=== PATIENT | male | born 1990 | race Caucasian/White ===

== ENCOUNTER 2023-10-13 15:11 | Emergency (ER) | payer OTHER, MEDICAID, SELFPAY ==
[2023-10-13 15:18] VITALS: BP 99/64; BMI 30.1
--- NOTE | 2023-10-13 16:08 | ED.GENMED ---
History of Present Illness
General
Chief Complaint: Seizure
Source: patient
Exam Limitations: none
Time Seen by Provider: 10/13/23 15:42
Nursing documentation reviewed up to this point in time: agreed with
Travel History
Have you had any contact with someone who has COVID-19?: No
Do you have any symptoms of coronavirus? Fever > 100 degrees, chills, cough, shortness of breath, sore throat, loss of taste or smell, muscle aches, or headache?: No
History of Present Illness
History of Present Illness:
Patient with history of ADHD, bipolar disorder, autism, and seizure disorder, presents to ED secondary to more frequent episodes of angry outbursts along with ongoing 'drop seizures'. 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
callosum is to removed on October 22 [facility], in hopes of reducing number of aforementioned symptoms. Otherwise, per mom, patient has been eating and drinking plenty water at home. Denies recent illness. Denies
fever. Denies coughing. Denies nausea, vomiting, or diarrhea. Patient has been taking his medications, as prescribed.
Past History
Past History
ED Past Medical History: Seizures and Other (MR, autism, seizure disorder, bipolar disorder, scoliosis, ADHD, hyponatremia)
ED Past Surgical History: Other (frontal lobotomy, corpus collousum resection, vagas nerve stimulator implantation)
Social History
Tobacco: Non-smoker
Alcohol: None
Drug: None
Personal: Single
Living: with family
Employment: Employed
Family History
Family History: Unable to obtain
Review of Systems
Review of Systems
Allergies reviewed?: Yes
All Other Systems: ROS reviewed and negative except as documented in HPI and ROS
Constitutional: Reports no symptoms
EENT: Reports no symptoms
Respiratory: Reports no symptoms
Cardiac: Reports no symptoms
ABD/GI: Reports no symptoms
: Reports no symptoms
Musculoskeletal: Reports no symptoms
Skin: Reports no symptoms
Neurological: Reports other (seizures)
Phy Exam
Physical Exam
Physical Exam:
Physical Exam
General: no apparent distress, not acutely ill
Neck: supple. no meningeal signs.
Heart: s1/s2 regular rate and rhythm, no murmur. equal radial pulses.
Lungs: no acute respiratory distress. clear bilaterally
Abdomen: normal bowel sounds. not tender.
Neuro: alert and oriented. no focal neurological deficits
Skin: no rash
Extremities: no edema. no calf tenderness.
Course
Orders/Labs/Results
Orders:
Orders
10/13/23 16:08
Urinalysis Reflex To Culture Urgent
Vital Signs
Initial and Last Documented VS:
Initial Vital Signs
Temp Pulse Resp BP Pulse Ox
99.4 F 86 16 99/64 96
10/13/23 15:18 10/13/23 15:18 10/13/23 15:18 10/13/23 15:18 10/13/23 15:18
Last Documented Vital Signs
Temp Pulse Resp BP Pulse Ox
99.4 F 86 16 99/64 96
10/13/23 15:18 10/13/23 15:18 10/13/23 15:18 10/13/23 15:18 10/13/23 15:18
MDM/Problems Addressed
MDM/Problems Addressed:
Patient remains calm, cooperative, without any physical outbursts during observation. As such, despite not obtaining urinalysis, mother feels comfortable taking him home at this time. Patient advised to follow-up with his neurologist at [place]
[facility] for continual evaluation and treatment.
*Critical Care Note
Total Time (30-74mins, 75-104mins- exclusive of procedures): Not Applicable
ED Attending Note
-
Portions of this chart may have been created with voice recognition software.� Occasional wrong word or��sound alike� substitutions may have occurred due to the inherent limitations of voice recognition software.
Discharge Plan
Departure
Patient Disposition: Home (Routine Discharge)
Date of Disposition: 10/13/23
Time of Disposition: 17:06
Patient with high blood pressure during this ER visit?: Yes
Condition: Good
Discharge Problem:
Seizure
Instructions: Seizures, Adult (DC)
Prescriptions:
No Action
cyanocobalamin (vitamin B-12) 1,000 MCG tablet
500 mcg PO DAILY
fluticasone propionate 1 SPRAY spray,suspension
1 spray inhalation DAILY
aripiprazole [Abilify] 30 MG tablet
30 mg PO HS
cholecalciferol (vitamin D3) 1,000 UNITS tablet
1,000 units PO DAILY
Align 4 MG capsule
1 capsules PO DAILY
divalproex 500 MG tablet extended release 24 hr
500 mg PO BID
trazodone 50 mg Tablet
50 mg PO HS Qty: 30 0RF
sodium chloride 1,000 mg Tablet,Soluble
1,000 mg PO BID Qty: 60 0RF
bisacodyl [OneLAX Bisacodyl] 10 mg Suppository
10 mg [place] DAILYPRN PRN (Reason: constipation) Qty: 30 0RF
Aptiom 600 MG tablet
600 mg PO HS Qty: 30 0RF
clobazam 10 MG tablet
20 mg PO QPM@1830 Qty: 0 0RF
clobazam 10 MG tablet
10 mg PO DAILY Qty: 0 0RF
Xcopri 200 mg tablet
200 mg PO HS Qty: 30 0RF
Activity Restrictions/Additional Instructions:
As discussed, please continue to take your medications as prescribed, along with follow up with your neurologist @ [facility]
Interventions
Interventions:
*Risk Screen - Suicide Last Done: 10/13/23 16:03
*General Assessment Last Done: 10/13/23 15:31
*Neglect/Abuse Screening Last Done: 10/13/23 15:31
ED- Fall Risk Assessment Last Done: 10/13/23 15:31
*ED COVID-19 Vaccine History Last Done: 10/13/23 15:18
*Nursing Disposition Last Done: 10/13/23 17:15
ED- Cardiac Assessment Last Done: 10/13/23 15:31
ED- Neurological Assessment Last Done: 10/13/23 15:31
ED- Pulmonary Assessment Last Done: 10/13/23 15:31
Discharge Date and Time
Discharge Date/Time: 10/13/23 17:15
== END 2023-10-13 17:15 | disposition home or self-care (01) ==
LOC: EMR 15:11
PROVIDERS: EMERGENCY PHYSICIAN Emergency Medicine; FAMILY PHYSICIAN Family Medicine
DX: G40.909 Epilepsy, unspecified, not intractable, without status epilepticus (principal); F84.0 Autistic disorder; F31.9 Bipolar disorder, unspecified; F90.9 Attention-deficit hyperactivity disorder, unspecified type
CPT/HCPCS: 99282

== ENCOUNTER → 2023-10-29 11:58 | Outpatient (REF) | payer OTHER, MEDICAID, SELFPAY | LOC: RAD 11:58 | PROVIDERS: ATTENDING PHYSICIAN Family Medicine | DX: G40.909 Epilepsy, unspecified, not intractable, without status epilepticus (principal); M79.601 Pain in right arm; W19.XXXA Unspecified fall, initial encounter | CPT/HCPCS: 73090; 73130 ==

== ENCOUNTER 2024-05-27 18:33 | Emergency (ER) | payer OTHER, MEDICAID, SELFPAY ==
[2024-05-27 18:36] VITALS: BP 141/110
[2024-05-27 18:53] LABS: % Basophils 0.5 % (0-2); % Eosinophils 1.9 % (0-6); % Immature Granulocytes 0.5 % (0-0.5); % Lymphocytes 35.2 % (20.5-51.1); % Monocytes 10.2 % (1.7-9.3); % Neutrophils 51.7 % (42.2-75.2); Absolute Eosinophils 0.1 10^3/uL (0-0.7); Absolute Lymphocytes 2.3 10^3/uL (1.2-3.4); Absolute Monocytes 0.7 10^3/uL (0.1-0.6); Absolute Neutrophils 3.3 10^3/uL (1.4-6.5); Hematocrit 41.2 % (39.0-52.0); Hemoglobin 15.4 g/dL (13.0-18.0); Mean Corp Hgb Conc. 37.4 g/dL (33.0-37.0); Mean Corpuscular Hgb 33.5 pg (27.0-31.0); Mean Corpuscular Volume 89.6 fL (80.0-94.0); Mean Platelet Volume 9.9 fL (7.4-10.4); Nucleated Red Blood Cells % 0 % (-); Platelet Count 223 10^3/uL (130-400); Red Cell Dist. Width 12.4 % (11.5-14.5); White Blood Cell Count 6.4 10^3/uL (4.8-10.8)
[2024-05-27 19:17] VITALS: BP 117/78
[2024-05-27 19:28] LABS: ALT (SGPT) 42 U/L (0-50); AST (SGOT) 32 U/L (17-59); Albumin 4.5 g/dl (3.5-5.0); Alkaline Phosphatase 92 U/L (38-126); Blood Urea Nitrogen 12 mg/dl (9-20); Calcium 9.9 mg/dl (8.4-10.2); Carbon Dioxide 28 mmol/L (22-30); Chloride 97 mmol/L (98-107); Glucose 101 mg/dl (70-99); Potassium 4.6 mmol/L (3.5-5.1); Sodium 136 mmol/L (135-145); Total Bilirubin 0.2 mg/dl (0.2-1.3); Total Protein 6.8 g/dl (6.3-8.2); eGFR > 60.00
[2024-05-27 19:35] VITALS: BMI 33.6
[2024-05-27 19:36] LABS: Lipase 116 U/L (23-300)
--- NOTE | 2024-05-27 19:36 | ED.GENMED ---
History of Present Illness
General
Chief Complaint: Abdominal Symptoms
Source: patient
Exam Limitations: none
Time Seen by Provider: 05/27/24 19:18
History of Present Illness
History of Present Illness:
33-year-old male with developmental delay presents with mother who states the patient has had a burning discomfort in his bottom over the past several days. He also has been struggling to have a bowel movement. He has chronic constipation. There
has been no vomiting or fever. He denies abdominal pain. No other complaints at this time
Past History
Past History
ED Past Medical History: Seizures and Other (MR, autism, seizure disorder, bipolar disorder, scoliosis, ADHD, hyponatremia)
ED Past Surgical History: Other (frontal lobotomy, corpus collousum resection, vagas nerve stimulator implantation)
Social History
Tobacco: Non-smoker
Alcohol: None
Drug: None
Personal: Single
Living: with family
Employment: Employed
Family History
Family History: Unable to obtain
Phy Exam
Physical Exam
Physical Exam:
General: Well-appearing male no acute respiratory distress
HEENT: Normocephalic atraumatic
Heart: Regular rate and rhythm no murmurs
Lungs: Clear no wheeze
Abdomen is soft nontender nondistended no guarding or rebound
Rectal exam: There is diffuse erythema about the gluteal cleft that spreads from the perianal region and posteriorly and superiorly. The skin is irritated. There is no hemorrhoids or abscess or pilonidal cyst
Extremities: No cyanosis
Course
Orders/Labs/Results
Orders:
Orders
05/27/24 18:39
CR Abdomen - 1 View Urgent
Comment:
Reason For Exam: constipation
05/27/24 18:47
Complete Blood Count/With Diff Urgent
Comprehensive Metabolic Panel Urgent
Lipase Urgent
Comment: ADD ON
05/27/24 19:18
Add On- LAB Urgent
Comments:: add on
Tests Added?: lipase
Abnormal Lab Results
05/27/24
18:47
RBC 4.60 L 10^6/uL
(4.70-6.10)
MCH 33.5 H pg
(27.0-31.0)
MCHC 37.4 H g/dL
(33.0-37.0)
Absolute Monos (auto) 0.7 H 10^3/uL
(0.1-0.6)
Monocytes % 10.2 H %
(1.7-9.3)
Chloride 97 L mmol/L
(98-107)
Creatinine 0.5 L mg/dL
(0.7-1.3)
Glucose 101 H mg/dl
(70-99)
05/27/24 18:47
05/27/24 18:47
Vital Signs
Initial and Last Documented VS:
Initial Vital Signs
Temp Pulse Resp BP Pulse Ox
98.3 F 84 18 141/110 96
05/27/24 18:36 05/27/24 18:36 05/27/24 18:36 05/27/24 18:36 05/27/24 18:36
Last Documented Vital Signs
Temp Pulse Resp BP Pulse Ox
98.3 F 69 14 117/78 93
05/27/24 18:36 05/27/24 19:18 05/27/24 19:18 05/27/24 19:17 05/27/24 19:18
MDM/Problems Addressed
Differential Diagnosis Includes:
Patient main complaint is burning discomfort in the perianal region. Evidence of exam of skin irritation question fungal versus inflammatory. He may not be drying himself well after showers. Will recommend topical steroid for this and good
hygiene. Labs ordered through triage were reviewed without significant finding. X-ray of the abdomen was personally visualized and is without any acute finding
*Critical Care Note
Total Time (30-74mins, 75-104mins- exclusive of procedures): Not Applicable
ED Attending Note
-
Portions of this chart may have been created with voice recognition software.� Occasional wrong word or��sound alike� substitutions may have occurred due to the inherent limitations of voice recognition software.
Discharge Plan
Departure
Patient Disposition: Home (Routine Discharge)
Date of Disposition: 05/27/24
Time of Disposition: 20:53
Patient with high blood pressure during this ER visit?: No
Discharge Problem:
Acute buttock pain
Prescriptions:
New
hydrocortisone [Proctocort] 1 % cream
1 applic topical TID Qty: 28.35 0RF
No Action
cyanocobalamin (vitamin B-12) 1,000 MCG tablet
500 mcg PO DAILY
fluticasone propionate 1 SPRAY spray,suspension
1 spray inhalation DAILY
aripiprazole [Abilify] 30 MG tablet
30 mg PO HS
cholecalciferol (vitamin D3) 1,000 UNITS tablet
1,000 units PO DAILY
Align 4 MG capsule
1 capsules PO DAILY
divalproex 500 MG tablet extended release 24 hr
500 mg PO BID
trazodone 50 mg Tablet
50 mg PO HS Qty: 30 0RF
sodium chloride 1,000 mg Tablet,Soluble
1,000 mg PO BID Qty: 60 0RF
bisacodyl [OneLAX Bisacodyl] 10 mg Suppository
10 mg [place] DAILYPRN PRN (Reason: constipation) Qty: 30 0RF
Aptiom 600 MG tablet
600 mg PO HS Qty: 30 0RF
clobazam 10 MG tablet
20 mg PO QPM@1830 Qty: 0 0RF
clobazam 10 MG tablet
10 mg PO DAILY Qty: 0 0RF
Xcopri 200 mg tablet
200 mg PO HS Qty: 30 0RF
Referrals:
Benja Hudson MD [Family Provider] -
Activity Restrictions/Additional Instructions:
Make sure to clean and dry the area well. Use steroid 3 times a day. Return if worse otherwise follow-up with your doctor
Interventions
Interventions:
*Risk Screen - Suicide Last Done: 05/27/24 19:35
*General Assessment Last Done: 05/27/24 18:36
*Neglect/Abuse Screening Last Done: 05/27/24 19:35
*ED COVID-19 Vaccine History Last Done: 05/27/24 19:35
JL-Iodswx-Oozuzrvnwp Assessment Last Done: 05/27/24 19:35
Discharge Date and Time
Print Language: NORWEGIAN
[2024-05-27 20:00] VITALS: BP 112/70
[2024-05-27 21:00] VITALS: BP 107/74
== END 2024-05-27 21:12 | disposition home or self-care (01) ==
LOC: EMR 18:33
PROVIDERS: Student in an Organized Health Care Education/Training Program; EMERGENCY PHYSICIAN Emergency Medicine; FAMILY PHYSICIAN Family Medicine
DX: M79.10 Myalgia, unspecified site (principal); R62.50 Unspecified lack of expected normal physiological development in childhood; K59.09 Other constipation; G40.909 Epilepsy, unspecified, not intractable, without status epilepticus; F31.9 Bipolar disorder, unspecified; F84.0 Autistic disorder
CPT/HCPCS: 99283; 74018; 80053; 83690; 85025

== ENCOUNTER → 2024-09-28 12:21 | Outpatient (REF) | payer MEDICAID, MEDICARE, SELFPAY ==
[2024-09-28 12:52] LABS: % Basophils 0.2 % (0-2); % Eosinophils 0.8 % (0-6); % Immature Granulocytes 0.4 % (0-0.5); % Lymphocytes 39.1 % (20.5-51.1); % Monocytes 10.5 % (1.7-9.3); Absolute Monocytes 0.5 10^3/uL (0.1-0.6); Absolute Neutrophils 2.5 10^3/uL (1.4-6.5); Hematocrit 39.2 % (39.0-52.0); Hemoglobin 14.7 g/dL (13.0-18.0); Mean Corp Hgb Conc. 37.5 g/dL (33.0-37.0); Mean Corpuscular Hgb 34.3 pg (27.0-31.0); Mean Corpuscular Volume 91.6 fL (80.0-94.0); Nucleated Red Blood Cells % 0 % (-); Platelet Count 181 10^3/uL (130-400); Red Blood Cell Count 4.28 10^6/uL (4.70-6.10); Red Cell Dist. Width 12.6 % (11.5-14.5); White Blood Cell Count 5.1 10^3/uL (4.8-10.8)
[2024-09-28 13:20] LABS: ALT (SGPT) 62 U/L (0-50); AST (SGOT) 36 U/L (17-59); Albumin 4.1 g/dl (3.5-5.0); Alkaline Phosphatase 72 U/L (38-126); Amylase 68 U/L (30-110); Blood Urea Nitrogen 5 mg/dl (9-20); Calcium 8.7 mg/dl (8.4-10.2); Carbon Dioxide 31 mmol/L (22-30); Chloride 91 mmol/L (98-107); Glucose 97 mg/dl (70-99); Lipase 122 U/L (23-300); Potassium 4.2 mmol/L (3.5-5.1); Sodium 129 mmol/L (135-145); Total Bilirubin 0.4 mg/dl (0.2-1.3); Total Protein 6.4 g/dl (6.3-8.2); eGFR > 60.00
== END ==
LOC: REG 12:21
PROVIDERS: ATTENDING PHYSICIAN Physician Assistant
DX: R10.84 Generalized abdominal pain (principal); K59.09 Other constipation
CPT/HCPCS: 36415; 74019; 80053; 82150; 83690; 85025

== ENCOUNTER → 2024-10-10 07:15 | Outpatient (REF) | payer MEDICARE, MEDICAID, SELFPAY | LOC: HWRAD 07:15 | PROVIDERS: ATTENDING PHYSICIAN Physician Assistant | DX: R10.84 Generalized abdominal pain (principal) | CPT/HCPCS: 76700 ==

== ENCOUNTER 2024-10-19 22:18 | Inpatient (IN) | payer MEDICARE, MEDICAID, SELFPAY ==
[2024-10-19 17:13] VITALS: BP 99/72
--- NOTE | 2024-10-19 18:23 | ED.GENMED ---
History of Present Illness
General
Chief Complaint: Abdominal Pain
Source: patient
Exam Limitations: none
Time Seen by Provider: 10/19/24 18:14
Nursing documentation reviewed up to this point in time: agreed with
History of Present Illness
History of Present Illness:
Patient to ED with complaint of RUQ abd. pain. MOther states he has had pain on and off for the past month. Pain gradually got worse and he was sent fo outpatient [facility] 1.5 weeks ago by PCP. Mother states he has evidence of gallstones. Today he
reported pain was worse so mother brought him here for eval. Denies fever/chills. No nausea. Had vomiting 1.5 weeks ago but none since. +diarrhea althought mother reports continuing his miralax and colace. On arrival to ED he is awake and alert,
in no distress.
Past History
Past History
ED Past Medical History: Seizures and Other (MR, autism, seizure disorder, bipolar disorder, scoliosis, ADHD, hyponatremia)
ED Past Surgical History: Other (frontal lobotomy, corpus collousum resection, vagas nerve stimulator implantation)
Social History
Tobacco: Non-smoker
Alcohol: None
Drug: None
Personal: Single
Living: with family
Employment: Employed
Family History
Family History: Unable to obtain
Review of Systems
Review of Systems
Allergies reviewed?: Yes
All Other Systems: ROS reviewed and negative except as documented in HPI and ROS
Constitutional: Reports no symptoms
EENT: Reports no symptoms
Respiratory: Reports no symptoms
Cardiac: Reports no symptoms
ABD/GI: Reports abdominal pain (RUQ)
: Reports no symptoms
Musculoskeletal: Reports no symptoms
Skin: Reports no symptoms
Neurological: Reports no symptoms
Psychiatric: Reports no symptoms
Phy Exam
General Physical Exam
General Presentation: well appearing and no apparent distress
General age: appears stated age
General Skin: warm and dry
General Habitus: normal
General Mental: alert
Cardiovascular Exam
Cardiovascular Exam: regular rate/rhythm and no edema
Pulmonary Exam
Pulmonary Exam: lungs clear and no respiratory distress
Gastrointestinal Exam
Gastrointestinal Exam: normal bowel sounds, soft, no organomegaly and non distended
Palpation: left upper quadrant: No tenderness, left lower quadrant: No tenderness, right upper quadrant: Mild tenderness and right lower quadrant: No tenderness
Neurological Exam
Neurological Exam: alert, oriented x3, CN II-XII intact, no motor deficits, no sensory deficits and normal gait
Musculoskeletal Exam
Musculoskeletal Exam: full ROM and neuro vasc intact
Skin Exam
Skin Exam: normal color, warm/dry and no rash
Psychiatric Exam
Psychiatric Exam: normal mood/affect
Course
Orders/Labs/Results
Orders:
Orders
10/19/24 Breakfast
Regular
Fluid Restriction: 1200 mL/day (40 oz)
10/19/24 18:22
US Abdomen Complete/Upper Urgent
Reason For Exam: WORSENING RUQ pain, F/U GB FROM 10/10/24
10/19/24 18:30
Complete Blood Count/With Diff Urgent
Comprehensive Metabolic Panel Urgent
Cortisol, Random Urgent
Comment: ADD ON
Lipase Urgent
Serum Osmolality Urgent
Comment: ADD ON
TSH Reflex To Free T4 Urgent
Comment: ADD ON
10/19/24 20:03
Phenobarbital [S] Urgent
Valproic Acid Level [Depakane] Urgent
10/19/24 20:54
Osmolality, Random Urine Urgent
Date Specimen was Collected: 10/19/24
Time Specimen was Collected: 20:52
Urine Sodium Urgent
Date Specimen was Collected: 10/19/24
Time Specimen was Collected: 20:52
10/19/24 21:11
NEPHROLOGY CONSULT Urgent
Consulting Provider: Jeffery Hearn
Was physician already notified: Yes
10/19/24 21:41
Admit/Transfer Patient As Directed
Co-Sign Provider:
Level of Care: Inpatient admission
Assign to:: Telemetry
Physician / Group: [facility]
Diagnosis: hyponatremia
Reason for Telemetry: Other
Other Reason for Telemetry: hyponatremia
Date to Stop Telemetry: 10/21/24
Time to Stop Telemetry: 11:00
Reason for Hospitalization: hyponatremia
Expected length of stay greater than two midnights?: Yes
ELOS- Estimated Length of Stay in days: 3
I certify the patient meets the requirements for IP care: Yes
PRN Pain Medication Management As Directed
May give lesser potent ordered pain med per pt: Yes
preference::
Protocol:: Medication orders for pain may be administered in a
manner that supports deferring to patient preference
when the pt is:
- Requesting an ordered lesser potent pain medication.
Least to most potent pain medications are defined
as: acetaminophen < NSAID < tramadol < opioids
(morphine, oxycodone, hydromorphone).
- Requesting a lesser dose of the same medication IF
ORDERED.
- Requesting a less intrusive route of administration
if both routes are prescribed by the provider (PO <
IV).
10/19/24 21:43
Code Status As Directed
Resuscitation Status: Full Code
10/19/24 22:00
3% Sodium Chloride 250 ml [Sodium Chloride 3%] 250 ml IV ONCE
10/19/24 23:06
Acetaminophen [Tylenol] 650 mg PO Q4HPRN PRN
Buspirone [Buspar] 20 mg PO HS
Lorazepam [Ativan] 0.5 mg PO TID
Lorazepam [Ativan] 1 mg IV Q4HPRN PRN
Magnesium Oxide 500 mg PO HS
Trazodone [Desyrel] 100 mg PO HS
ziprasidone HCl 160 mg PO HS
10/19/24 23:06
Activity As Directed
Activity Level: As Tolerated
Bladder Scan As Directed
Follow Bladder Retention/Intermittent Cath Algorithm?: Yes
PRN if no void in __ hours: 6
Frequency: Per Retention Algorithm
If Bladder Scan Result >: 400
then:: Straight cath
Precautions As Directed
Type of Precautions: Seizure
Straight Cath As Directed
Frequency: Per Retention Algorithm
Additional Instructions: straight cath as needed per acute urinary retention algorithm for 24 hrs
Additional Instructions: for bladder scan greater than 400 mL
Vital Signs As Directed
Frequency: Per unit guidelines
DX Deep Vein Thrombosis Video Routine
10/20/24 06:00
Basic Metabolic Panel IN AM
Cortisol, Random IN AM
10/20/24 08:00
Buspirone [Buspar] 10 mg PO BID
Cholecalciferol (Vitamin D3) [VITAMIN D3 (cholecalciferol)] DOSE mcg PO DAILY
Divalproex Extended Rel. 24 Hr [Depakote ER (24 Hr Release)] 1,500 mg PO BID
Loratadine [Claritin] 10 mg PO DAILY
Phenobarbital [Luminal] 129.6 mg PO BID
Sodium Chloride 1 gram PO BID
Sodium Chloride 2 gram PO DAILY
Tamsulosin [Flomax] 0.4 mg PO DAILY
Trazodone [Desyrel] 50 mg PO BID
Ziprasidone [Geodon] 20 mg PO BID
multivit with min-folic acid [Multivitamin Gummies] 400 tablet PO DAILY
10/20/24 18:00
Enoxaparin Sodium [Lovenox] 40 mg SC QPM
10/20/24 22:00
Clonazepam [Klonopin] 2 mg PO HS
10/21/24 06:00
Basic Metabolic Panel IN AM
10/21/24 11:00
DC Protocol for Telemetry ONCE
10/22/24 06:00
Basic Metabolic Panel IN AM
Abnormal Lab Results
10/19/24 10/19/24
18:30 20:54
RBC 4.06 L 10^6/uL
(4.70-6.10)
Hct 37.3 L %
(39.0-52.0)
MCH 34.2 H pg
(27.0-31.0)
MCHC 37.3 H g/dL
(33.0-37.0)
Absolute Monos (auto) 1.1 H 10^3/uL
(0.1-0.6)
Immature Gran % 0.6 H %
(0-0.5)
Monocytes % 15.3 H %
(1.7-9.3)
Sodium 119 L* mmol/L
(135-145)
Chloride 85 L mmol/L
(98-107)
Creatinine 0.5 L mg/dL
(0.7-1.3)
Serum Osmolality 252 L mOsm/kg
(275-300)
ALT 60 H U/L
(0-50)
Urine Sodium 114 H mmol/L
(30-90)
10/19/24 18:30
10/19/24 18:30
Vital Signs
Initial and Last Documented VS:
Initial Vital Signs
Temp Pulse Resp BP Pulse Ox
98.7 F 89 9 99/72 99
10/19/24 17:13 10/19/24 17:13 10/19/24 17:13 10/19/24 17:13 10/19/24 17:13
Last Documented Vital Signs
Temp Pulse Resp BP Pulse Ox
98.7 F 99 17 126/68 93
10/19/24 17:13 10/19/24 21:45 10/19/24 21:45 10/19/24 20:03 10/19/24 21:45
*Critical Care Note
Total Time (30-74mins, 75-104mins- exclusive of procedures): Not Applicable
Update Note
Update Note:
Patient to ED wt complaint of RUQ abd pain. No n/v, has had diarrhea however mother continues to give miralax and colace daily. Labs reveiwed. Na 119. Mother reports prior history of hyponatremia but not to this leve. He is on NaCL 1g po tid
and she reports compliance with his meds. Dr. Hearn notified of pateint status. Recommend NaCl 3% @ 20cc/hr. Infusion started. US report reviewed, no evidence of cholelcystitis. He remains awake and alert, in no distress. He is admitted
to hospitalist service with nephrology consulted.
ED Attending Note
-
Portions of this chart may have been created with voice recognition software.� Occasional wrong word or��sound alike� substitutions may have occurred due to the inherent limitations of voice recognition software.
Discharge Plan
Departure
Patient Disposition: Admit
Date of Disposition: 10/19/24
Time of Disposition: 20:57
Presentation/result/management discussed w/ accepting MD/DO: Hospitalist
Patient with high blood pressure during this ER visit?: No
Condition: Fair
Covid-19: Not Applicable
Discharge Problem:
Acute hyponatremia
Interventions
Interventions:
*Risk Screen - Suicide Last Done: 10/19/24 17:14
*General Assessment Last Done: 10/19/24 17:14
*Neglect/Abuse Screening Last Done: 10/19/24 17:14
*ED COVID-19 Vaccine History Last Done: 10/19/24 17:14
MO-Iluzfq-Wbtgeueqnf Assessment Last Done: 10/19/24 20:10
[2024-10-19 18:48] LABS: % Basophils 0.1 % (0-2); % Immature Granulocytes 0.6 % (0-0.5); % Lymphocytes 23.4 % (20.5-51.1); % Monocytes 15.3 % (1.7-9.3); % Neutrophils 59.6 % (42.2-75.2); Absolute Eosinophils 0.1 10^3/uL (0-0.7); Absolute Lymphocytes 1.7 10^3/uL (1.2-3.4); Absolute Monocytes 1.1 10^3/uL (0.1-0.6); Absolute Neutrophils 4.3 10^3/uL (1.4-6.5); Hematocrit 37.3 % (39.0-52.0); Hemoglobin 13.9 g/dL (13.0-18.0); Mean Corp Hgb Conc. 37.3 g/dL (33.0-37.0); Mean Corpuscular Hgb 34.2 pg (27.0-31.0); Mean Corpuscular Volume 91.9 fL (80.0-94.0); Mean Platelet Volume 9.9 fL (7.4-10.4); Nucleated Red Blood Cells % 0 % (-); Platelet Count 152 10^3/uL (130-400); Red Blood Cell Count 4.06 10^6/uL (4.70-6.10); Red Cell Dist. Width 12.3 % (11.5-14.5); White Blood Cell Count 7.2 10^3/uL (4.8-10.8)
[2024-10-19 19:02] LABS: ALT (SGPT) 60 U/L (0-50); AST (SGOT) 43 U/L (17-59); Albumin 4.1 g/dl (3.5-5.0); Alkaline Phosphatase 72 U/L (38-126); Blood Urea Nitrogen 10 mg/dl (9-20); Calcium 8.5 mg/dl (8.4-10.2); Carbon Dioxide 28 mmol/L (22-30); Chloride 85 mmol/L (98-107); Glucose 81 mg/dl (70-99); Potassium 4.2 mmol/L (3.5-5.1); Sodium 119 mmol/L (135-145); Total Bilirubin 0.6 mg/dl (0.2-1.3); Total Protein 6.3 g/dl (6.3-8.2); eGFR > 60.00
[2024-10-19 19:10] LABS: Lipase 88 U/L (23-300)
[2024-10-19 20:03] VITALS: BP 126/68
[2024-10-19 20:20] LABS: Osmolality Serum 252 mOsm/kg (275-300)
[2024-10-19 20:56] LABS: Cortisol, Random 8.1 ug/dl
[2024-10-19 21:09] LABS: Osmolality Urine 352 mOsm/kg (300-900)
--- NOTE | 2024-10-19 21:14 | HPS.HSE ---
Addendum entered and electronically signed by Mayo Vo DO 10/19/24 22:28:
Patient seen and examined independently. Agree with findings and plan as set forth by GREER Hernandez.
Patient is a 33y M with PMH significant for seizure disorder, prior brain surgery and chronic hyponatremia who presents to ED complaining of abdominal pain. History obtained primarily from mother at the bedside. Patient has been complaining of
abdominal discomfort and back discomfort off-and-on for about a month. Has been taking bowel regimen for constipation and more recently has had some loose stools. Appetite is somewhat diminished. Mother notes that he is 'always thirsty' and
drinks three water bottles of Snapple / water mixture as well as several cups of coffee in a day.
He had a single episode of emesis about one week ago. None since.
Mother notes that his Depakote was increased from 1000mg BID to 1500mg BID one month ago.
His last seizure was 1 1/2 weeks ago.
Ass:
Acute on Chronic Hyponatremia
Seizure Disorder
History of Brain Surgery
Abdominal Pain
Autism / Intellectual Disorder
BPH
Plan:
Admit to monitored bed.
3% saline overnight per Nephrology recs.
Continue usual salt supplementation.
Enforce fluid restriction.
Nephrology evaluation for additional recommendations.
Continue current med regimen for now - though many medications for mood / seizure / etc likely contributing to hyponatremia.
Risk of breakthrough seizure - seizure precautions / PRN Ativan if any seizure activity noted.
? Neuro / Psych evaluations to review any potential med adjustments to minimize risk of hyponatremia.
No clear etiology of abdominal pain. Cholelithiasis only on US. Follow for any new / worsening symptoms.
Original Note:
Family Physician
-
Family Physician: Oneyda Neal PA-C
Chief Complaint
-
abdominal pain
History of Present Illness
33 year old with PMH for Autism,seizure, hyponatremia, anxiety, presented to us with abdominal pain for more than one month. RUQ abd. pain. patient had an US on 10/10 with the impression of Cholelithiasis. Today he reported pain was worse so mother
brought him here for eval. he vomited once a week ago. complaining of back pain. Denies fever/chills. patient was constipated, he was given prune juice and miralax and now he is having diarrhea. denied dysuria or hematuria. his appetite is good.
US today with the impression of Cholelithiasis. No evidence for gallbladder wall thickening or pericholecystic edema, with a negative sonographic Santillan's sign.No evidence for biliary ductal dilation.Mild hepatomegaly. No evidence of a focal hepatic
lesion.The pancreas is unable to be adequately visualized.
patient was also noted with hyponatremia. patient is receiving 3% in ER. admitting for further management.
Medical History
Past Medical History
Past Medical History: Reports Other
Additional Past Medical History:
autism
anxiety
sciatica
seizure
MR
Past Surgical History: Reports Other
Additional Past Surgical History:
vagal nerve stimulator
corpus callosum removal
cranial stenosis repair.
Social History
Tobacco: Non-smoker
Alcohol: None
Drug: None
Personal: Single
Living: With Family
Family History
Family History: Not pertinent
Allergies / Home Medications
Allergies reflects when Allergies were last updated in [facility].
Home Medications with original date entered in [facility]
Allergy/Medication List:
Allergies
Allergy/AdvReac Type Severity Reaction Status Date / Time
Antihistamines - Ethanolamine Allergy hallucinations Verified 10/19/24 17:13
to
'antihistamines'
lactose Allergy intolerant Verified 10/19/24 17:13
Home Medications
cholecalciferol (vitamin D3) 25 mcg (1,000 unit) tablet 2,000 units PO DAILY Supplement 02/18/22
divalproex 500 mg tablet,extended release 24 hr 1,500 mg PO BID Seizures 02/18/22
buspirone 10 mg tablet 10 mg PO BID 10/19/24
buspirone 10 mg tablet 20 mg PO HS 10/19/24
clonazepam 2 mg tablet 2 mg PO HS 10/19/24
docusate sodium 100 mg capsule (Colace) 200 mg PO BID 10/19/24
levomefolate 15 mg-algal oil 90.314 mg capsule 1 cap PO DAILY 10/19/24
loratadine 10 mg tablet 10 mg PO DAILY 10/19/24
lorazepam 1 mg tablet 0.5 mg PO TID 10/19/24
magnesium oxide 500 mg PO HS 10/19/24
multivitamin with minerals-folic acid 200 mcg chewable tablet (Multivitamin Gummies) 400 tab PO DAILY 10/19/24
phenobarbital 32.4 mg tablet 129.6 mg PO BID 10/19/24
sodium chloride 1,000 mg soluble tablet 1,000 mg PO BID 10/19/24
sodium chloride 1,000 mg soluble tablet 2,000 mg PO DAILY 10/19/24
tamsulosin 0.4 mg capsule 0.4 mg PO DAILY 10/19/24
trazodone 50 mg tablet 50 mg PO BID 10/19/24
trazodone 50 mg tablet 100 mg PO HS 10/19/24
ziprasidone HCl 20 mg capsule 20 mg PO BID 10/19/24
ziprasidone HCl 80 mg capsule 160 mg PO HS 10/19/24
Review of Systems
-
Constitutional: Reports No Symptoms
EENT: Reports No Symptoms
Respiratory: Reports No Symptoms
Cardiac: Reports No Symptoms
Abdomen/GI: Reports Abdominal Pain
: Reports No Symptoms
Musculoskeletal: Reports No Symptoms
Skin: Reports No Symptoms
Neurological: Reports No Symptoms
Endocrine: Reports No Symptoms
Hematologic/Lymphatic: Reports No Symptoms
Psych: Reports No Symptoms
Physical Exam
Vital Signs
Vital Signs
Temp Pulse Resp BP Pulse Ox
98.7 F 89 9 99/72 99
10/19/24 17:13 10/19/24 17:13 10/19/24 17:13 10/19/24 17:13 10/19/24 17:13
Physical Exam
General: Well Developed, Well Nourished and No Apparent Distress
HEENT: NormoCephalic, Moist mucous membranes and Atraumatic
Respiratory: Clear
Cardiac: S1/S2 and Regular Rhythm; No Murmur or Rub
GI: Soft, Non Tender, Non Distended and Normal Bowel Sounds; No Organomegaly
Rectal: Deferred by Provider
Musculoskeletal: No Clubbing, No Cyanosis and No Edema
Skin: No Rash
Neuro: Nonfocal/grossly intact
Psych: Calm
Laboratory Results
-
10/19/24 18:30
10/19/24 18:30
Laboratory Results
Total Bilirubin 0.6 mg/dl (0.2-1.3) 10/19/24 18:30
AST 43 U/L (17-59) 10/19/24 18:30
ALT 60 U/L (0-50) H 10/19/24 18:30
Alkaline Phosphatase 72 U/L (38-126) 10/19/24 18:30
Lipase 88 U/L (23-300) 10/19/24 18:30
Data Reviewed
-
Diagnostic Radiology: Report Reviewed by me
Lab Data: Labs Reviewed by me
Impression/Plan
-
#hyponatremia
-NA 119
-patient received 3%in ER
-BMP in am
-sodium chloride tabs continued
-nephrology consulted
#abdominal pain
-abdominal US with Cholelithiasis. No evidence for gallbladder wall thickening or pericholecystic edema, with a negative sonographic Santillan's sign.No evidence for biliary ductal dilation.Mild hepatomegaly. No evidence of a focal hepatic lesion.
pancreas is unable to be adequately visualized.
-ctm
# epilepsy
-Divalproex,lorazepam,phenobarbital,,ziprasidone continued
-seizure precaution
-ativan iv prn for seizure
#Autism/Bipolar disorder./Intellectual disability/ADHD.
-Buspirone,clonazepam,,trazodone continued
#urinary retention
-bladder scan
-Flomax continued
#Scoliosis.
Full code
#Lovenox
[2024-10-19 21:23] LABS: Urine Sodium 114 mmol/L (30-90)
[2024-10-19] MEDS: SODIUM CHLORIDE 3% 250 IV (21:30)
[2024-10-19 23:22] VITALS: BP 108/71
[2024-10-19 23:27] VITALS: BMI 32.6
[2024-10-19] MEDS: MAGNESIUM OXIDE 500 MG PO (23:37)
[2024-10-19] MEDS: ATIVAN 0.5 MG PO (23:37)
[2024-10-19] MEDS: GEODON 160 MG PO (23:44)
[2024-10-19] MEDS: BUSPAR 20 MG PO (23:45)
[2024-10-20] VITALS (16 sets, daily range): BP systolic 93–149; BP diastolic 53–106
[2024-10-20 04:32] LABS: Blood Urea Nitrogen 9 mg/dl (9-20); Calcium 8.5 mg/dl (8.4-10.2); Carbon Dioxide 27 mmol/L (22-30); Chloride 94 mmol/L (98-107); Estimated Creatinine Clearance > 125 ml/min; Glucose 100 mg/dl (70-99); Sodium 125 mmol/L (135-145); eGFR > 60.00
[2024-10-20] MEDS: TYLENOL 650 MG PO ×2 (04:45→16:28)
[2024-10-20 05:04] LABS: Cortisol, Random 5.2 ug/dl
--- NOTE | 2024-10-20 05:08 | W.PN.UPDATE ---
Update Note
Progress Note Update
Pt with ongoing c.o of abd pain. Asked RN to bladder scan as in previous admit had issue with urine retention. Nurse did note pt was voiding small amounts when measured. Bladder scan and str cath orders placed. Str cath'd for 450. will send urine
sample to rule out other causes on abd pain.
[2024-10-20 05:31] LABS: Urine Albumin Negative (Neg - Trace); Urine Bilirubin Negative (Negative); Urine Character Clear (Clear); Urine Color Yellow; Urine Glucose Negative (Negative); Urine Ketone Negative (Negative); Urine Leukocyte Negative (Negative); Urine Nitrite Negative (Negative); Urine Occult Blood Negative (Negative); Urine Specific Gravity 1.005 (<1.030); Urine Urobilinogen Negative (Neg - 1+)
[2024-10-20] MEDS: TYLENOL #3 1 TABLET PO (06:30)
[2024-10-20 07:29] LABS: Sodium 126 mmol/L (135-145)
--- NOTE | 2024-10-20 08:50 | W.CON.NEPH ---
Consultation
-
Date/Time Consultation Requested: 10/20/2024 8 AM
Date/Time Consultation Performed: 10/20/2024 9 AM
Requesting Provider: Dr. Vo
Performing Provider: Dr. Plaza
Reason for Consultation: Hyponatremia
Medical History
-
Chief Complaint: Abdominal pain
History of Present Illness:
33-year-old gentleman with developmental delay/intellectual disorder with chronic seizure disorder with history of neurologic surgery including callosumectomy. He also has chronic hyponatremia treated by salt tablets. It is believed that his
hyponatremia is related to his antiseizure medications. It is uncertain who is managing his hyponatremia as an outpatient as the patient is unable to give an adequate history. He also has BPH on Flomax therapy. He was brought to the emergency
room from the mother because of worsening abdominal pain over the last month. He had recent x-rays which had shown significant constipation. There is no current nausea or vomiting. He has been eating without issue by his report. His fluid intake
is elevated, likely over 84 ounces per day. At the time of admission his sodium level was 119 down from a recent sodium of 132 in August.
Past Medical History
Autism
Anxiety
Sciatica
Seizure disorder
Regurgitation
Corpus callosum removal
Cranial stenosis repair
Vagal nerve stimulator
Social History
Tobacco: Non-Smoker
Alcohol: None
Family History
Family History: Not Pertinent
Allergies / Home Medications
Allergy/AdvReac Type Severity Reaction Status Date / Time
Antihistamines - Ethanolamine Allergy hallucinations Verified 10/19/24 17:13
to
'antihistamines'
lactose Allergy intolerant Verified 10/19/24 17:13
�Medication �Instructions �Recorded �Confirmed �Type
cholecalciferol (vitamin D3) 25 2,000 units PO DAILY Supplement 02/18/22 10/19/24 History
mcg (1,000 unit) tablet
divalproex 500 mg tablet,extended 1,500 mg PO BID Seizures 02/18/22 10/19/24 History
release 24 hr
buspirone 10 mg tablet 10 mg PO BID 10/19/24 10/19/24 History
buspirone 10 mg tablet 20 mg PO HS 10/19/24 10/19/24 History
clonazepam 2 mg tablet 2 mg PO HS 10/19/24 10/19/24 History
docusate sodium 100 mg capsule 200 mg PO BID 10/19/24 10/19/24 History
(Colace)
levomefolate 15 mg-algal oil 1 cap PO DAILY 10/19/24 10/19/24 History
90.314 mg capsule
loratadine 10 mg tablet 10 mg PO DAILY 10/19/24 10/19/24 History
lorazepam 1 mg tablet 0.5 mg PO TID 10/19/24 10/19/24 History
magnesium oxide 500 mg PO HS 10/19/24 10/19/24 History
multivitamin with minerals-folic 400 tab PO DAILY 10/19/24 10/19/24 History
acid 200 mcg chewable tablet
(Multivitamin Gummies)
phenobarbital 32.4 mg tablet 129.6 mg PO BID 10/19/24 10/19/24 History
sodium chloride 1,000 mg soluble 1,000 mg PO BID 10/19/24 10/19/24 History
tablet
sodium chloride 1,000 mg soluble 2,000 mg PO DAILY 10/19/24 10/19/24 History
tablet
tamsulosin 0.4 mg capsule 0.4 mg PO DAILY 10/19/24 10/19/24 History
trazodone 50 mg tablet 50 mg PO BID 10/19/24 10/19/24 History
trazodone 50 mg tablet 100 mg PO HS 10/19/24 10/19/24 History
ziprasidone HCl 20 mg capsule 20 mg PO BID 10/19/24 10/19/24 History
ziprasidone HCl 80 mg capsule 160 mg PO HS 10/19/24 10/19/24 History
Review of Systems
-
He reports abdominal pain
No issues with appetite. He reports issues with urinating as well.
All other systems: Negative unless noted
Physical Exam
Vital Signs
Vital Signs
Temp Pulse Resp BP Pulse Ox
97.9 F 76 14 97/76 92
10/20/24 03:18 10/20/24 06:00 10/20/24 06:00 10/20/24 06:00 10/20/24 03:18
Lab Results
WBC 7.2 10^3/uL (4.8-10.8) 10/19/24 18:30
RBC 4.06 10^6/uL (4.70-6.10) L 10/19/24 18:30
Hgb 13.9 g/dL (13.0-18.0) 10/19/24 18:30
Hct 37.3 % (39.0-52.0) L 10/19/24 18:30
Plt Count 152 10^3/uL (130-400) 10/19/24 18:30
Sodium 126 mmol/L (135-145) L 10/20/24 06:40
Potassium 4.0 mmol/L (3.5-5.1) 10/20/24 03:49
Chloride 94 mmol/L (98-107) L 10/20/24 03:49
Carbon Dioxide 27 mmol/L (22-30) 10/20/24 03:49
BUN 9 mg/dl (9-20) 10/20/24 03:49
Creatinine 0.4 mg/dL (0.7-1.3) L 10/20/24 03:49
eGFR > 60.00 10/20/24 03:49
Glucose 100 mg/dl (70-99) H 10/20/24 03:49
Calcium 8.5 mg/dl (8.4-10.2) 10/20/24 03:49
Albumin 4.1 g/dl (3.5-5.0) 10/19/24 18:30
Laboratory Tests
09/28/24
12:40
Sodium 129 L
Laboratory Tests
10/19/24
20:54
Urine Osmolality 352
Urine Sodium 114 H
Physical Exam
Patient is awake alert oriented and in no distress. Mood and affect were pleasant, insight and judgment were good. Pupils are equal round and reactive to light, extraocular movements are intact, sclera were anicteric. Hearing was normal, ears and
nose are intact. Oropharynx was clear. Neck was supple with trachea midline and no thyromegaly. Heart was regular rate and rhythm without rubs. Lower extremities without edema. Lungs were clear to auscultation bilaterally and with normal
excursion. Abdomen was soft, nontender, with normal active bowel sounds, and no hepatosplenomegaly. Skin was without rash and with normal turgor.
Data Reviewed
-
Ultrasound: Report Reviewed by me (Abdominal ultrasound 10/19/2024 cholelithiasis no hydronephrosis)
Labs: Labs Reviewed by me
Old Records: Reviewed
Assessment/Plan
-
Assessment
Hyponatremia acute on chronic
Seizure disorder
BPH
Abdominal pain
Relative hypotension
Plan
He has received 250 cc of hypertonic saline with improvement of sodium up to 126 from 119.
We will follow his sodium level serially today
Additional hypertonic may be given later.
Salt tablets will continue at this time
Samsca may be considered as well given urine studies
[2024-10-20] MEDS: SODIUM CHLORIDE 2 GRAM PO (09:02)
[2024-10-20] MEDS: ATIVAN 0.5 MG PO ×3 (09:03→16:29)
[2024-10-20] MEDS: FLOMAX 0.4 MG PO (09:03)
[2024-10-20] MEDS: DESYREL 50 MG PO ×2 (09:03→15:42)
[2024-10-20] MEDS: LUMINAL 129.6 MG PO ×2 (09:04→19:22)
[2024-10-20] MEDS: VITAMIN D3 (cholecalciferol) 50 MCG PO (09:04)
[2024-10-20] MEDS: THERAGRAN 1 TABLET PO (09:05)
[2024-10-20] MEDS: CLARITIN 10 MG PO (09:05)
[2024-10-20] MEDS: GEODON 20 MG PO (09:06)
[2024-10-20] MEDS: DEPAKOTE ER (24 HR RELEASE) 1500 MG PO ×2 (10:32→19:22)
[2024-10-20] MEDS: BUSPAR 10 MG PO ×2 (10:33→16:28)
[2024-10-20] MEDS: SODIUM CHLORIDE 1 GRAM PO ×2 (11:48→18:27)
--- NOTE | 2024-10-20 14:09 | W.PN.HOSP.TC ---
Today's Communication/Plan
-
f/u BMP
psych eval
Assessment / Plan
Assessment / Plan
1. Acute on chronic hyponatremia
-Admission sodium of 119, baseline sodium 130 +
-Urine sodium of 115 and urine osmolality of 352
-Not on any clear medication to cause hyponatremia except valproic acid, dose of which was recently increased
-got 3% NS yesterday, Na is upto 126
-continue oral sodium
-F/u repeat BMP
-Nephro considering repeat dosing
2. H/o of seizure disorder
-Valproic acid dose increased recently
-Also on phenobarbital
3. Labile HTN
-SBP in 200s in morning, down to 90s after home medication
-measurement issue vs labile htn
-continue current home medication
4. Urinary retention
-Required straight catheterization for 450 cc last night
-continue bladder scan protocol
5. Autism spectrum disorder
Cognitive impairment
-Psychiatry consulted as per mother request
Lumbago
Anxiety - chronic benzo therapy
Full code
Lovneox
Total time spent : 53 mins
I personally saw and examined the patient.
I have reviewed all diagnostic interpretations and treatment plans as written.
Time includes patient management by me, time spent at the patients bedside, time to review lab and imaging results, discussing patient care, documentation in the medical record, and time spent with the family or caregiver and discussing care plan
with RN/Consultants.
Anticipated Discharge: 24 - 48 hours
Subjective/Interval History
-
Date of Service: October 20, 2024
afebrile
have abd pain. nausea
Objective Data
-
Labs:
Laboratory Results
10/20/24 10/20/24 10/20/24
03:49 06:40 16:00
Sodium 125 L 126 L Pending
Potassium 4.0 Pending
Chloride 94 L Pending
Carbon Dioxide 27 Pending
BUN 9 Pending
Creatinine 0.4 L Pending
Glucose 100 H Pending
Calcium 8.5 Pending
Vital Signs:
Vital Signs
Temp Pulse Resp BP Pulse Ox
98.4 F 83 12 97/59 92
10/20/24 07:39 10/20/24 11:00 10/20/24 11:00 10/20/24 11:00 10/20/24 03:18
I&O
10/19/24 10/20/24 10/21/24
06:59 06:59 06:59
Intake Total 240 / 240
Output Total 710 / 710
Balance -470 / -470
Review of Systems
-
Unable to obtain full review of systems at this time due to: Other (h/o TBI)
Physical Exam
-
General: Comfortable
HEENT: Negative Oxygen
Respiratory: Clear to Auscultation
Cardiac: Regular Rhythm and S1/S2; Negative Murmur or Rub
GI: Soft, Nontender and Nondistended
Musculoskeletal: No Edema
Neuro: Awake, Alert, Oriented, No Motor Deficits and Nonfocal/Grossly Intact
Psych: Calm
[2024-10-20 16:11] LABS: Blood Urea Nitrogen 9 mg/dl (9-20); Calcium 8.6 mg/dl (8.4-10.2); Carbon Dioxide 22 mmol/L (22-30); Chloride 100 mmol/L (98-107); Estimated Creatinine Clearance > 125 ml/min; Glucose 96 mg/dl (70-99); Sodium 131 mmol/L (135-145); eGFR > 60.00
--- NOTE | 2024-10-20 17:44 | CON.MD ---
Consultation - Medical
-
33 yr old M w/ PMH of seizure d/o, HTN, urinary retention, anxiety w/ chronic benzo tx & ASD w/ cognitive impairment. Pt with hx of corpus callosum removal, cranial stenosis repair & vegal nerve stimulator. Pt presenting with acute on chronic
hyponatremia, admission Na at 119, baseline 130+.
Psychiatry consulted due to pt being on extensive list of psychiatric medications and concerns of polypharmacy contributing to hyponatremia.
Pt is poor historian, unable to meaningfully answer most questions though is oriented on a superficial level. Pts 2 mothers present to provide hx.
Pt w/ outpatient psychiatric management - moms are in process of setting up neuropsych evaluation to assess medication regimen in more detail. Is current prescribed the following: buspirone 10mg/10mg/20mg, clonazepam 2mg HS, Geodon 20mg/20mg/140mg
(+20mg PRN agitation), trazodone 50mg/50mg/100mg. Also depakote & phenobarbital for seizure d/o - as per moms report recently started tegretol about a month ago as well (moms think 200mg BID).
Pt with extensive hx of prior medication trials - moms report that Geodon has been the most clearly effective, has helped keep pt calm most of the time. PRN dose can be very helpful when he gets agitated. Pt can still become agitated and aggressive,
but this happens less frequently than prior to starting Geodon. Moms are not sure if the other psychotropics help much if at all - they do note he doesn't sleep much due to restlessness throughout the night.
ASD w/ cognitive impairment
MSE:,cooperative,,speech is ,minimal,mood is OK, affect is ,labile at times, childlike, thought process is loose in association, concrete, thought content: denies SI/HI, with intermittent avh reported. Superficially oriented. Memory not formally
tested. Insight poor. Judgement poor
No changes to psychotropics at this time - Geodon has clearly been effective and risk of decompensation too high if dose adjusted, buspirone & trazodone both have a very low risk and pts antiseizure medications are much more likely to be the cause
(in particular if pt did indeed start tegretol recently).
Discussed with pts moms possibility of decreasing trazodone over the next night or 2 depending on how he's doing while here so as to decrease polypharm, pt may be experiencing akathisia at night & disrupting sleep.
Pts moms also note that they worry about making outpatient medication adjustments due to pts hx of aggression when sxs worsen - they wanted to know if there are options for pt where he can reside while medications are adjusted and then return home
(or live supervisor roving department in a facility). Discussed with them various options such as crisis residence, various support homes - will discuss with CM if family can be provided more detail on this information.
Psychiatry will follow.
[2024-10-20] MEDS: LOVENOX 40 MG SC (18:27)
[2024-10-20] MEDS: ATIVAN 1 MG IV (19:22)
[2024-10-20] MEDS: NSS (PRESERVATIVE FREE) 0.5 ML IV (19:24)
[2024-10-20] MEDS: GEODON 160 MG PO (20:53)
[2024-10-20] MEDS: DESYREL 100 MG PO (20:53)
[2024-10-20] MEDS: SENOKOT-S 1 TABLET PO (20:53)
[2024-10-20] MEDS: MAGNESIUM OXIDE 500 MG PO (20:53)
[2024-10-20] MEDS: BUSPAR 20 MG PO (20:54)
[2024-10-20] MEDS: KLONOPIN 2 MG PO (20:54)
[2024-10-21] MEDS: NSS (PRESERVATIVE FREE) 0.5 ML IV (02:04)
[2024-10-21] MEDS: ATIVAN 1 MG IV ×2 (02:05→05:36)
[2024-10-21] MEDS: MYLICON 80 MG PO (02:30)
[2024-10-21] MEDS: TYLENOL 650 MG PO ×2 (02:40→20:34)
[2024-10-21] MEDS: GEODON PO (02:44)
[2024-10-21 03:44] VITALS: BP 120/69
--- NOTE | 2024-10-21 05:40 | PTCARENOTE ---
Pt constantly screaming out. Pt continuously threatening to leave, and continuously threatening to kill the nursing staff, stating 'I will shoot you all' and 'I'm going to kill all of these nurses'. Pt told multiple times that, that language is not
appropriate and that he is in a hospital with other people who are sleeping. Pt continued to act out. Brooke THAKUR contacted fo medication to help calm the pt. 1mg IV Ativan ordered and promptly given. Will continue to monitor.
[2024-10-21 07:00] VITALS: BP 123/42
[2024-10-21 08:08] LABS: Blood Urea Nitrogen 11 mg/dl (9-20); Calcium 8.7 mg/dl (8.4-10.2); Carbon Dioxide 25 mmol/L (22-30); Chloride 97 mmol/L (98-107); Estimated Creatinine Clearance > 125 ml/min; Glucose 99 mg/dl (70-99); Potassium 4.4 mmol/L (3.5-5.1); Sodium 129 mmol/L (135-145); eGFR > 60.00
[2024-10-21] MEDS: BUSPAR 10 MG PO ×2 (09:20→15:43)
[2024-10-21] MEDS: ATIVAN 0.5 MG PO ×3 (09:21→17:47)
[2024-10-21] MEDS: GEODON 20 MG PO ×3 (09:21→21:23)
[2024-10-21] MEDS: SENOKOT-S 1 TABLET PO (09:21)
[2024-10-21] MEDS: THERAGRAN 1 TABLET PO (09:21)
[2024-10-21] MEDS: DEPAKOTE ER (24 HR RELEASE) 1500 MG PO ×2 (09:21→21:21)
[2024-10-21] MEDS: FLOMAX 0.4 MG PO (09:21)
[2024-10-21] MEDS: VITAMIN D3 (cholecalciferol) 50 MCG PO (09:22)
[2024-10-21] MEDS: SODIUM CHLORIDE 2 GRAM PO (09:22)
[2024-10-21] MEDS: CLARITIN 10 MG PO (09:22)
[2024-10-21] MEDS: DESYREL 50 MG PO ×2 (09:22→15:42)
[2024-10-21] MEDS: LUMINAL 129.6 MG PO ×2 (09:22→21:51)
[2024-10-21 11:00] VITALS: BP 127/90
[2024-10-21] MEDS: DULCOLAX 10 MG PO (12:55)
[2024-10-21] MEDS: SODIUM CHLORIDE 1 GRAM PO ×2 (12:55→15:43)
--- NOTE | 2024-10-21 13:12 | W.PN.HOSP.TC ---
Today's Communication/Plan
-
f/u bmp
laxatives for BM
abd xr
Assessment / Plan
Assessment / Plan
1. Acute on chronic hyponatremia
-Admission sodium of 119, baseline sodium 130 +
-Urine sodium of 115 and urine osmolality of 352
-Not on any clear medication to cause hyponatremia except valproic acid, dose of which was recently increased
-got 3% NS yesterday
-Na was up to 131, now back to 129.
-continue oral sodium
-Maintain on fluid restriction 40oz
-Nephro helping
2. H/o of seizure disorder
-Valproic acid dose increased recently
-Also on phenobarbital
-Pt f/u with Dr Harden from [facility] from '06
-family reports to have 3 seizures last night - i was notified by RN- asked RN to monitor
3. Labile HTN
-SBP in 200s in morning, down to 90s after home medication
-measurement issue vs labile htn
-continue current home medication
4. Urinary retention
-Required straight catheterization for 450 cc
-continue bladder scan protocol
5. Autism spectrum disorder
Cognitive impairment
-Psychiatry consulted as per mother request
-input noted
6. Chronic constipation
-long-term issues with patient holding BM voluntarily
-abd xr
-order laxativess
Lumbago
Anxiety - chronic benzo therapy
Full code
Lovneox
discussed care plan with patient mother at bedside.
Total time spent : 53 mins
Anticipated Discharge: 24 - 48 hours
Subjective/Interval History
-
Date of Service: October 21, 2024
patient complaining of ongoing abd pain/feeling nauseous
BP controlled
No issues overnight
Objective Data
-
Labs:
Laboratory Results
02/22/25
07:26
Sodium 129 L
Potassium 4.4
Chloride 97 L
Carbon Dioxide 25
BUN 11
Creatinine 0.5 L
Glucose 99
Calcium 8.7
Vital Signs:
Vital Signs
Temp Pulse Resp BP Pulse Ox
98.0 F 79 17 127/90 100
10/21/24 11:00 10/21/24 11:00 10/21/24 11:00 10/21/24 11:00 10/21/24 11:00
I&O
10/20/24 10/21/24 10/22/24
06:59 06:59 06:59
Intake Total 240 / 240 240 / 240 720 / 720
Output Total 710 / 710
Balance -470 / -470 240 / 240 720 / 720
Review of Systems
-
Respiratory: Reports No Symptoms
Cardiac: Reports No Symptoms
Abdomen/GI: Reports Abdominal Pain, Nausea and Constipated
Physical Exam
-
General: Comfortable
HEENT: Negative Oxygen
Respiratory: Clear to Auscultation
Cardiac: Regular Rhythm and S1/S2; Negative Murmur or Rub
GI: Soft, Nontender and Nondistended
Musculoskeletal: No Edema
Neuro: Awake, Alert, Oriented, No Motor Deficits and Nonfocal/Grossly Intact
Psych: Calm
--- NOTE | 2024-10-21 14:17 | W.PN.NEPH.PH ---
Addendum entered and electronically signed by Jeff Plaza MD 10/21/24 14:22:
current phenobarbital. can reduce samcsa efficacy. use hypertonic instead today
Original Note:
Today's Communication / Plan
-
follow BMP
Assessment/Plan
-
Assessment
Hyponatremia acute on chronic
Seizure disorder
BPH
Abdominal pain
Relative hypotension
Plan
samsca today
follow BMP
Salt tablets will continue at this time 4g/d
-
-
Date of Service: October 21, 2024
CC / HPI / ROS
-
Chief Complaint:
hyponatremia
History of Present Illness:
Na up to 129 with hypertonic
BP stable
no more abdominal pain
Review of Systems:
no CP/SOB
Labs
-
Labs:
WBC 7.2 10^3/uL (4.8-10.8) 10/19/24 18:30
RBC 4.06 10^6/uL (4.70-6.10) L 10/19/24 18:30
Hgb 13.9 g/dL (13.0-18.0) 10/19/24 18:30
Hct 37.3 % (39.0-52.0) L 10/19/24 18:30
Plt Count 152 10^3/uL (130-400) 10/19/24 18:30
Sodium 129 mmol/L (135-145) L 10/21/24 07:26
Potassium 4.4 mmol/L (3.5-5.1) 10/21/24 07:26
Chloride 97 mmol/L (98-107) L 10/21/24 07:26
Carbon Dioxide 25 mmol/L (22-30) 10/21/24 07:26
BUN 11 mg/dl (9-20) 10/21/24 07:26
Creatinine 0.5 mg/dL (0.7-1.3) L 10/21/24 07:26
eGFR > 60.00 10/21/24 07:26
Glucose 99 mg/dl (70-99) 10/21/24 07:26
Calcium 8.7 mg/dl (8.4-10.2) 10/21/24 07:26
Albumin 4.1 g/dl (3.5-5.0) 10/19/24 18:30
Physical Exam
-
Vital Signs:
Vital Signs
Temp Pulse Resp BP Pulse Ox
98.0 F 79 17 127/90 100
10/21/24 11:00 10/21/24 11:00 10/21/24 11:00 10/21/24 11:00 10/21/24 11:00
Cardiovascular:: Regular rate and rhythm
Respiratory:: Bilateral: CTA
Lung Excursion:: Normal
Abdomen:: Nontender and Soft
Bowel Sounds:: Normal
Extremity Edema:: None: Bilateral:
--- NOTE | 2024-10-21 14:43 | W.PN.UPDATE ---
Update Note
Progress Note Update
Pt seen, chart reviewed, spoke to nursing. Pt talking to himself in bed, intermittently agitated with loud speech. As per staff, pts mother was visiting earlier and it seems that they become quite agitated when together - staff notes that both pt
and mother were yelling at each other, yelling threats at each other, needed to be redirected during visit. Pt at this time not able to participate in meaningful interview as he get quickly upset whenever approached. Pts mom was not present at the
time, will call her to discuss his care further.
As per pts guardians, he takes Geodon 140mg HS + 20mg PRN agitation, changed 160mg HS to reflect this accordingly
- ordered EKG as Geodon at high doses known to be risk for QTc prolongation, pt on multiple other medications as well that can prolong QTc
Continue current psychotropic regimen otherwise - will discuss with pts guardians possibility of trialing trazodone decrease to at least somewhat decrease polypharmacy.
[2024-10-21 15:00] VITALS: BP 112/79
[2024-10-21] MEDS: SODIUM CHLORIDE 3% 250 IV (15:44)
--- NOTE | 2024-10-21 15:50 | CM ---
CM following re: discharge planning.
Reviewed pt's chart, met with pt and pt's mother at bedside.
Pt lives with mother in a 2SH, 3 steps to enter. Pt's mother stated she provides all necessary care. Pt is known to [facility], goes to day care 5 days per week. per mother pt is independent with functional ability. Pt's mother brought her concerns
regarding pt's behavior. Psychiatrist following.
PCP: [facility]
Pharmacy: [facility]
D/C plan: home with resumptions outpatient psychiatric services. Mother to transport at discharge.
CM will follow with discharge plan updates as hospitalization progresses
[2024-10-21] MEDS: LOVENOX 40 MG SC (17:47)
[2024-10-21 20:30] LABS: Blood Urea Nitrogen 8 mg/dl (9-20); Calcium 8.5 mg/dl (8.4-10.2); Carbon Dioxide 24 mmol/L (22-30); Chloride 98 mmol/L (98-107); Estimated Creatinine Clearance > 125 ml/min; Glucose 109 mg/dl (70-99); Potassium 3.9 mmol/L (3.5-5.1); Sodium 130 mmol/L (135-145); eGFR > 60.00
[2024-10-21] MEDS: SENOKOT-S PO (20:49)
[2024-10-21 21:18] VITALS: BP 114/82
[2024-10-21] MEDS: GEODON 120 MG PO (21:22)
[2024-10-21] MEDS: BUSPAR 20 MG PO (21:24)
[2024-10-21] MEDS: DESYREL 100 MG PO (21:24)
[2024-10-21] MEDS: MAGNESIUM OXIDE 500 MG PO (21:24)
[2024-10-21] MEDS: KLONOPIN 2 MG PO (21:25)
[2024-10-22] MEDS: MYLICON 80 MG PO (04:10)
[2024-10-22] MEDS: TYLENOL 650 MG PO (04:46)
[2024-10-22 05:47] LABS: Blood Urea Nitrogen 8 mg/dl (9-20); Calcium 8.4 mg/dl (8.4-10.2); Carbon Dioxide 25 mmol/L (22-30); Chloride 99 mmol/L (98-107); Estimated Creatinine Clearance > 125 ml/min; Glucose 97 mg/dl (70-99); Potassium 4.2 mmol/L (3.5-5.1); Sodium 132 mmol/L (135-145); eGFR > 60.00
[2024-10-22 07:00] VITALS: BP 118/57
[2024-10-22] MEDS: ATIVAN 0.5 MG PO ×2 (08:01→12:36)
[2024-10-22] MEDS: GEODON 20 MG PO (08:01)
[2024-10-22] MEDS: VITAMIN D3 (cholecalciferol) 50 MCG PO (08:01)
[2024-10-22] MEDS: LUMINAL 129.6 MG PO (08:01)
[2024-10-22] MEDS: BUSPAR 10 MG PO (08:02)
[2024-10-22] MEDS: FLOMAX 0.4 MG PO (08:02)
[2024-10-22] MEDS: THERAGRAN 1 TABLET PO (08:02)
[2024-10-22] MEDS: SENOKOT-S 1 TABLET PO (08:02)
[2024-10-22] MEDS: CLARITIN 10 MG PO (08:02)
[2024-10-22] MEDS: DESYREL 50 MG PO (08:02)
[2024-10-22] MEDS: SODIUM CHLORIDE 2 GRAM PO (08:02)
[2024-10-22] MEDS: DEPAKOTE ER (24 HR RELEASE) 1500 MG PO (08:03)
--- NOTE | 2024-10-22 11:31 | W.PN.NEPH.PH ---
Today's Communication / Plan
-
follow BMP
Assessment/Plan
-
Assessment
Hyponatremia acute on chronic
Seizure disorder
BPH
Abdominal pain
Relative hypotension
Plan
no samsca today
follow BMP
Salt tablets will continue at this time 4g/d
dc planning
-
-
Date of Service: October 22, 2024
CC / HPI / ROS
-
Chief Complaint:
hyponatremia
History of Present Illness:
Na up to 132
BP stable
no more abdominal pain
Review of Systems:
no CP/SOB
Labs
-
Labs:
WBC 7.2 10^3/uL (4.8-10.8) 10/19/24 18:30
RBC 4.06 10^6/uL (4.70-6.10) L 10/19/24 18:30
Hgb 13.9 g/dL (13.0-18.0) 10/19/24 18:30
Hct 37.3 % (39.0-52.0) L 10/19/24 18:30
Plt Count 152 10^3/uL (130-400) 10/19/24 18:30
Sodium 132 mmol/L (135-145) L 10/22/24 04:55
Potassium 4.2 mmol/L (3.5-5.1) 10/22/24 04:55
Chloride 99 mmol/L (98-107) 10/22/24 04:55
Carbon Dioxide 25 mmol/L (22-30) 10/22/24 04:55
BUN 8 mg/dl (9-20) L 10/22/24 04:55
Creatinine 0.4 mg/dL (0.7-1.3) L 10/22/24 04:55
eGFR > 60.00 10/22/24 04:55
Glucose 97 mg/dl (70-99) 10/22/24 04:55
Calcium 8.4 mg/dl (8.4-10.2) 10/22/24 04:55
Albumin 4.1 g/dl (3.5-5.0) 10/19/24 18:30
Physical Exam
-
Vital Signs:
Vital Signs
Temp Pulse Resp BP Pulse Ox
98.4 F 92 18 118/57 96
10/22/24 07:00 10/22/24 07:00 10/22/24 07:00 10/22/24 07:00 10/22/24 07:00
Cardiovascular:: Regular rate and rhythm
Respiratory:: Bilateral: CTA
Lung Excursion:: Normal
Abdomen:: Nontender and Soft
Bowel Sounds:: Normal
Extremity Edema:: None: Bilateral:
[2024-10-22] MEDS: SODIUM CHLORIDE 1 GRAM PO (12:35)
--- NOTE | 2024-10-22 13:26 | CM ---
CM following re: discharge planning.
Reviewed pt's chart, met with pt and pt's mother at bedside.
Discharge order noted. Pt's mother is aware, expressed her agreement and she stated she is awaiting for psychiatrist to see the pt and she will transport her son home. Per mother, pt will resume outpatient psychiatric services at [facility] and will
resume going to a day care center 5 days per week.
IMM reviewed, placed on chart, pt has a copy.
D/C plan: home with mother and resumptions of existing services. Mother to transport.
--- NOTE | 2024-10-22 14:12 | W.PN.HOSP.TC ---
Today's Communication/Plan
-
d/c home
Assessment / Plan
Assessment / Plan
1. Acute on chronic hyponatremia
-Admission sodium of 119, baseline sodium 130 +
-Urine sodium of 115 and urine osmolality of 352
-Not on any clear medication to cause hyponatremia except valproic acid, dose of which was recently increased
-got 3% NS this admit
-Na 132 today
-continue oral sodium
-Maintain on fluid restriction 40oz
-Nephro helping
2. H/o of seizure disorder
-Valproic acid dose increased recently
-Also on phenobarbital
-Pt f/u with Dr Harden from [place] from '06
-family reports to have 3 seizures last night - i was notified by RN- asked RN to monitor
3. Labile HTN
-SBP in 200s in morning, down to 90s after home medication
-measurement issue vs labile htn
-continue current home medication
4. Urinary retention
-Required straight catheterization for 450 cc
-continue bladder scan protocol
5. Autism spectrum disorder
Cognitive impairment
-Psychiatry consulted as per mother request
-dose of geodon decreased
6. Chronic constipation
-long-term issues with patient holding BM voluntarily
-abd xr
-order laxatives -had appropriate response -added bowel regimen to home medication list. -Follow-up with GI in office if no improvement
Lumbago
Anxiety - chronic benzo therapy
Full code
Lovneox
More than 30 minutes spent in discharge including
Final examination of the patient
Summarizing hospital stay
Instructions for continuing care to all relevant caregivers
Preparation of discharge records, prescriptions, and referral forms
Total time spent (in minutes): 39mins
Anticipated Discharge: Today
Subjective/Interval History
-
Date of Service: October 22, 2024
feeling better
no n/v
had some diarrhea from laxatives use yesterday
Objective Data
-
Labs:
Laboratory Results
10/22/24
04:55
Sodium 132 L
Potassium 4.2
Chloride 99
Carbon Dioxide 25
BUN 8 L
Creatinine 0.4 L
Glucose 97
Calcium 8.4
Vital Signs:
Vital Signs
Temp Pulse Resp BP Pulse Ox
98.4 F 92 18 118/57 96
10/22/24 07:00 10/22/24 07:00 10/22/24 07:00 10/22/24 07:00 10/22/24 07:00
I&O
10/21/24 10/22/24 10/23/24
06:59 06:59 06:59
Intake Total 240 / 240 2039
Balance 240 / 240 2039
Review of Systems
-
Respiratory: Reports No Symptoms
Cardiac: Reports No Symptoms
Abdomen/GI: Reports No Symptoms
Physical Exam
-
General: Comfortable
HEENT: Negative Oxygen
Respiratory: Clear to Auscultation
Cardiac: Regular Rhythm and S1/S2; Negative Murmur or Rub
GI: Soft, Nontender and Nondistended
Musculoskeletal: No Edema
Neuro: Awake, Alert, Oriented, No Motor Deficits and Nonfocal/Grossly Intact
Psych: Calm
[2024-10-22 15:03] VITALS: BP 124/67
--- NOTE | 2024-10-22 15:13 | W.PN.UPDATE ---
Update Note
Progress Note Update
Pt seen, chart reviewed, pts mother present at bedside. Pt talking to himself in bed intermittently, pleasantly so today. Is able to respond to questions but responses are superficial and child-like, does report feeling 'much better' however. Spoke
to pts mom about concerns about psychotropic regimen andpolypharmacy, as before mom is worried about making changes to medication due to risk of decompensation and aggression from pt. Provided mom with information about crisis residence or
supportive living, provided information about [facility] as well - did stress to mom that I am not entirely sure what option would be appropriate or covered by their insurance, however urged her to call and find this information
out.
Pt otherwise stable psychiatrically - would not risk changing psychotropic regimen due to above risk and pt likely going home today.
QTc this AM 447
Continue psychotropic regimen - urged pts mom to call [facility] and see if they offer some sort of crisis residence of partial program that could be appropriate for pt to aid with gradually decreasing polypharmacy
--- NOTE | 2024-10-22 16:25 | W.DCSUMMARY ---
Discharge Summary
Discharge Data
Date of Admission: 10/19/24
Date of Discharge: 10/22/24
-
Pending Results: No
Hospital Course
Discharging Physician : Dr Darrion Aguilar
Disposition : Home
Primary care physician : Dr Oneyda Lynne
Principal Discharge diagnosis :
Acute on chronic hyponatremia
History of recurrent seizures
Essential hypertension
Chronic constipation
Urinary retention
Chronic Discharge diagnosis :
Autism spectrum disorder
Hospital Course :
Patient is a 33-year-old male with no mentioned past medical history was brought in by family for patient having diffuse abdominal discomfort and nausea. Patient has been on multiple bowel regimen medication but has not been had good success.
Patient also had increased thirst at times. Patient have history of orthostatic spectrum disorder and history of seizures and dose of Depakote was recently increased by primary neurologist. In ER on evaluation patient was found to having worsening
hyponatremia with sodium down to 119. Urine electrolytes study showed this likely related to ADH excess. Nephrology provided patient hypertonic saline with which sodium normalized. Patient already on water pills. Fluid restriction was added as
well. Potential source was felt to be Depakote although trazodone/Geodon can also cause hyponatremia. Patient can also have component of polydipsia with underlying history of Autism. Follow-up blood work prescription provided at discharge.
Patient had abdominal x-ray which showed increased moderate amount of fecal material throughout the colon. Patient was provided oral laxative therapy with which patient had improvement in symptoms of abdominal pain/nausea. Patient recommended to
be started on daily stool softeners with as needed laxative dosing if noted to having constipation. A gastroenterology office number also provided is patient may benefit with GI follow-up if continued to have problem with erratic bowel movements.
Patient also had episode of urine retention likely from constipation and requested catheterization. This recovered after improvement of constipation.
Patient have reported history of recurrent seizures none was witnessed by staff although patient family noted 3 episodes where patient was noted to be banging on the side rail with slurring of some words. As patient has been tried on multiple AEDs
in the past further dose adjustment of AED was deferred, patient mother is planning to contact primary neurologist postdischarge to set up an follow-up appointment.
At this point patient was discharged home.
Important imaging findings :
None
Procedure findings :
None
Discharge Plan
-
Patient Disposition: Home (Routine Discharge)
Discharge Diagnosis/Procedures: Acute on chronic hyponatremia, Seizure episode, Constipation
Condition: Fair
Diet: Regular
Activity: As tolerated
Driving Restrictions: No driving
Bathing Restrictions: OK to Shower
Activity Restrictions/Additional Instructions:
Please follow up with Dr Harden to discuss potential change back in Depakote as may have caused hyponatremia.
Please contact GI group office to establish care if Sergio continues to have problems with erratic bowel movements/treatment refractory constipation.
Referrals:
Shantelle Avila MD [Active] -
Oneyda Neal PA-C [Family Provider] - in one week
Prescriptions:
New
polyethylene glycol 3350 17 gram Powder In Packet
17 g PO DAILY Qty: 30 1RF
Rx Instructions:
HOLD DOSE IF HAVE DIARRHEA
ziprasidone HCl 60 mg Capsule
120 mg PO HS 30 Days Qty: 60 1RF
ziprasidone HCl 20 mg capsule
20 mg PO DAILY PRN (Reason: Agitation) Qty: 30 0RF
bisacodyl 5 mg tablet,delayed release (DR/EC)
10 mg PO DAILY PRN (Reason: IF no BM with miralax) Qty: 30 0RF
Continued
cholecalciferol (vitamin D3) 1,000 UNITS tablet
2,000 units PO DAILY
divalproex 500 MG tablet extended release 24 hr
1,500 mg PO BID
trazodone 50 mg Tablet
50 mg PO BID
tamsulosin 0.4 mg Capsule
0.4 mg PO DAILY
buspirone 10 mg Tablet
10 mg PO BID
buspirone 10 mg Tablet
20 mg PO HS
clonazepam 2 mg Tablet
2 mg PO HS
magnesium oxide 500 mg magnesium Tablet
500 mg PO HS
docusate sodium [Colace] 100 mg Capsule
200 mg PO BID
lorazepam 1 mg Tablet
0.5 mg PO TID
loratadine 10 mg Tablet
10 mg PO DAILY
phenobarbital 32.4 mg Tablet
129.6 mg PO BID
sodium chloride 1,000 mg Tablet,Soluble
2,000 mg PO DAILY
multivit with min-folic acid [Multivitamin Gummies] 200 mcg Tablet,Chewable
400 tab PO DAILY
levomefolate-algal oil 15-90.314 mg Capsule
1 cap PO DAILY
trazodone 50 mg tablet
100 mg PO HS
sodium chloride 1,000 mg tablet,soluble
1,000 mg PO BID
Changed
ziprasidone HCl 20 mg Capsule
20 mg PO TID@0800,1600,2000 Qty: 90 1RF
Discontinued
ziprasidone HCl 80 mg Capsule
160 mg PO HS
Discharge Orders:
Discharge Patient (As Directed); Ordered 10/22/24
Ordered By: Darrion Aguilar
Discharge Date and Time
Discharge Date/Time: 10/22/24 15:04
Print Language: BURMESE
== END 2024-10-22 15:04 | disposition home or self-care (01) | DRG 641 ==
LOC: 3 WEST ACU 22:18
PROVIDERS: Nurse Practitioner; Nurse Practitioner Family; Registered Nurse; ADMITTING PHYSICIAN Hospitalist; ATTENDING PHYSICIAN Hospitalist; CONSULT PHYSICIAN Psychiatry & Neurology Psychiatry; EMERGENCY PHYSICIAN Emergency Medicine; FAMILY PHYSICIAN Physician Assistant; OTHER PHYSICIAN Specialist
DX: E87.1 Hypo-osmolality and hyponatremia (principal); F84.0 Autistic disorder; G40.909 Epilepsy, unspecified, not intractable, without status epilepticus; N40.0 Benign prostatic hyperplasia without lower urinary tract symptoms; K80.20 Calculus of gallbladder without cholecystitis without obstruction; I10 Essential (primary) hypertension; K59.00 Constipation, unspecified; F41.9 Anxiety disorder, unspecified
CPT/HCPCS: 74018; 76700; 80048; 80053; 80164; 80184; 81003; 82533; 83690; 83930; 83935; 84295; 84300; 84443; 85025; 93005; 99285

== ENCOUNTER → 2024-11-01 16:38 | Outpatient (REF) | payer MEDICARE, MEDICAID, SELFPAY | LOC: HWRAD 16:38 | PROVIDERS: ATTENDING PHYSICIAN Internal Medicine Gastroenterology | DX: K59.03 Drug induced constipation (principal) | CPT/HCPCS: 74022 ==

== ENCOUNTER 2025-01-13 12:29 | Emergency (ER) | payer MEDICARE, SELFPAY ==
[2025-01-13 12:33] VITALS: BP 121/70
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
[2025-01-13] MEDS: SAPHRIS 10 MG SL (13:34)
[2025-01-13 13:36] LABS: % Basophils 0.5 % (0-2); % Immature Granulocytes 0.3 % (0-0.5); % Lymphocytes 28.2 % (20.5-51.1); % Monocytes 14.4 % (1.7-9.3); % Neutrophils 50.6 % (42.2-75.2); Absolute Eosinophils 0.4 10^3/uL (0-0.7); Absolute Lymphocytes 1.7 10^3/uL (1.2-3.4); Absolute Monocytes 0.9 10^3/uL (0.1-0.6); Absolute Neutrophils 3.1 10^3/uL (1.4-6.5); Hematocrit 37.1 % (39.0-52.0); Hemoglobin 13.5 g/dL (13.0-18.0); Mean Corp Hgb Conc. 36.4 g/dL (33.0-37.0); Mean Corpuscular Hgb 34.4 pg (27.0-31.0); Mean Corpuscular Volume 94.6 fL (80.0-94.0); Mean Platelet Volume 9.9 fL (7.4-10.4); Nucleated Red Blood Cells % 0 % (-); Platelet Count 171 10^3/uL (130-400); Red Blood Cell Count 3.92 10^6/uL (4.70-6.10); Red Cell Dist. Width 12.6 % (11.5-14.5); White Blood Cell Count 6.2 10^3/uL (4.8-10.8)
[2025-01-13 14:08] LABS: ALT (SGPT) 47 U/L (0-50); AST (SGOT) 41 U/L (17-59); Albumin 3.7 g/dl (3.5-5.0); Alkaline Phosphatase 64 U/L (38-126); Blood Urea Nitrogen 6 mg/dl (9-20); Calcium 8.9 mg/dl (8.4-10.2); Carbon Dioxide 26 mmol/L (22-30); Chloride 100 mmol/L (98-107); Glucose 94 mg/dl (70-99); Potassium 4.3 mmol/L (3.5-5.1); Sodium 130 mmol/L (135-145); Total Bilirubin 0.3 mg/dl (0.2-1.3); Total Protein 6.3 g/dl (6.3-8.2); eGFR > 60.00
[2025-01-13 15:10] VITALS: BP 121/73
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
[2025-01-13 15:59] VITALS: BMI 31.8
[2025-01-13] MEDS: ATIVAN 1 MG PO ×3 (16:15→21:57)
[2025-01-13] MEDS: DESYREL 25 MG PO (16:15)
[2025-01-13] MEDS: LUMINAL 129.6 MG PO (20:41)
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
--- NOTE | 2025-01-13 21:41 | EDRN ---
Called pharmacy about geodon order (2.66 capsules), will change and send medication
[2025-01-13] MEDS: DESYREL 100 MG PO (21:56)
[2025-01-13] MEDS: GEODON 120 MG PO (21:57)
[2025-01-13] MEDS: DEPAKOTE (12 HR RELEASE) 2000 MG PO (21:57)
[2025-01-13] MEDS: GEODON 40 MG PO (21:57)
[2025-01-14 05:55] VITALS: BP 116/86
[2025-01-14] MEDS: DESYREL 25 MG PO ×2 (07:44→16:24)
[2025-01-14] MEDS: DEPAKOTE (12 HR RELEASE) 1500 MG PO (07:44)
[2025-01-14] MEDS: LUMINAL 129.6 MG PO (07:45)
[2025-01-14] MEDS: ATIVAN 1 MG PO ×2 (07:45→16:24)
--- NOTE | 2025-01-14 14:37 | W.PN.UPDATE ---
Update Note
Progress Note Update
Psychiatry follow up. Patient has been in behavioral control while in the hospital. He is cooperative with assessment and states he will tell him mom 'i'm sorry' for his behavior at home. He repeatedly asks if he can return home.
On MSE he is calm and cooperative. he exhibits impoverished speech. He denies SI/HI/AVH. His mood is 'good.' Insight and judgement are limited.
VPA level today was 88
A/P-34 yo male with MR, autism, BPAD and ADHD presented for aggressive behaviors at home. 201 was signed yesterday. Patient has exhibited good behavioral control. His depakote level is therapeutic. There would be very limited to no benefit from a
psychiatric hospitalization in this patient. Plan is to contact mom who was agreeable yesterday to come pick him up. She will secure an appointment with his psychiatrist this week for medication management and he will return to his day program. Mom
is aware that crisis availability is 22/03 if needed in the future.
--- NOTE | 2025-01-14 15:51 | ED.CRISIS ---
ED Crisis Note
ED Crisis Note
Subjective:
34-year-old male with history of autism here for aggressive behavior.
Objective:
Resting comfortably no distress. Vital signs stable.
Assessment/Plan:
Patient is pending placement for aggressive behavior. Psychiatry consulted and following. Continue to monitor.
--- NOTE | 2025-01-14 16:13 | ED.CRISIS ---
ED Crisis Note
ED Crisis Note
Subjective:
34-year-old male with history of autism here for aggressive behavior.
Objective:
Resting comfortably no distress. Vital signs stable.
Assessment/Plan:
Patient cleared by psychiatry to go home. Patient had been voluntary, not under 302 status. Mother is okay with picking patient up for discharge and outpatient treatment. Stable for discharge from ER perspective.
[2025-01-14 16:26] VITALS: BP 117/84
== END 2025-01-14 17:09 | disposition home or self-care (01) ==
LOC: EMR 12:29
PROVIDERS: EMERGENCY PHYSICIAN Student in an Organized Health Care Education/Training Program; OTHER PHYSICIAN Psychiatry & Neurology Psychiatry
DX: R45.1 Restlessness and agitation (principal); F84.0 Autistic disorder; R56.9 Unspecified convulsions; F31.9 Bipolar disorder, unspecified; F79 Unspecified intellectual disabilities; F90.9 Attention-deficit hyperactivity disorder, unspecified type; M41.9 Scoliosis, unspecified; Z88.8 Allergy status to other drugs, medicaments and biological substances; Z91.011 Allergy to milk products
CPT/HCPCS: 99283; 80053; 80164; 85025

== ENCOUNTER → 2025-02-16 07:35 | Outpatient (REF) | payer MEDICARE, MEDICAID, SELFPAY | LOC: HWCARD 07:35 | PROVIDERS: FAMILY PHYSICIAN Family Medicine | DX: F23 Brief psychotic disorder (principal); F41.1 Generalized anxiety disorder | CPT/HCPCS: 93005 ==

== ENCOUNTER → 2025-03-06 07:20 | Outpatient (REF) | payer MEDICARE, MEDICAID, SELFPAY | LOC: HWRAD 07:20 | PROVIDERS: ATTENDING PHYSICIAN Physician Assistant | DX: R74.8 Abnormal levels of other serum enzymes (principal) | CPT/HCPCS: 76700 ==

== ENCOUNTER → 2025-05-01 07:03 | Outpatient (REF) | payer MEDICARE, MEDICAID, SELFPAY ==
[2025-05-01 09:27] LABS: Hematocrit 40.4 % (39.0-52.0); Hemoglobin 13.8 g/dL (13.0-18.0); Mean Corp Hgb Conc. 34.2 g/dL (33.0-37.0); Mean Corpuscular Volume 95.7 fL (80.0-94.0); Nucleated Red Blood Cells % 0 % (-); Platelet Count 144 10^3/uL (130-400); Red Cell Dist. Width 14.7 % (11.5-14.5)
[2025-05-01 09:31] LABS: ALT (SGPT) 26 U/L (0-50); AST (SGOT) 24 U/L (17-59); Albumin 3.7 g/dl (3.5-5.0); Alkaline Phosphatase 57 U/L (38-126); Blood Urea Nitrogen 8 mg/dl (9-20); Calcium 8.5 mg/dl (8.4-10.2); Carbon Dioxide 31 mmol/L (22-30); Chloride 102 mmol/L (98-107); Glucose 100 mg/dl (70-99); HDL Cholesterol 50 mg/dl; LDL Cholesterol, Calculated 97 mg/dl; Potassium 3.8 mmol/L (3.5-5.1); Sodium 136 mmol/L (135-145); Total Protein 6.2 g/dl (6.3-8.2); Very Low Density Lipoprotein 20 mg/dl (0-30); eGFR > 60.00
[2025-05-01 09:42] LABS: Glycohemoglobin (HgbA1c) 4.6 % (4.0-5.6)
[2025-05-01 09:48] LABS: Vitamin D, 25-OH*** 58.9 ng/mL (30-80)
[2025-05-01 10:01] LABS: TSH 0.81 uIU/ml (0.47-4.68)
[2025-05-01 10:25] LABS: Vitamin B12 707 pg/ml (239-931)
== END ==
LOC: HWLAB 07:03
PROVIDERS: ATTENDING PHYSICIAN Nurse Practitioner Family
DX: E87.1 Hypo-osmolality and hyponatremia (principal); F41.1 Generalized anxiety disorder; F23 Brief psychotic disorder
CPT/HCPCS: 36415; 80053; 80061; 82248; 82306; 82607; 83036; 84100; 84146; 84443; 85025; 93005